=== PATIENT | male | born 1950 | race Caucasian/White ===

== ENCOUNTER 2024-05-13 17:21 | Emergency (ER) | payer MEDICARE, OTHER ==
[2024-05-13 17:26] VITALS: BP 143/84; O2SAT 94
[2024-05-13] MEDS: cephALEXin 250 MG CAPSULE PO STA (17:49)
--- NOTE | 2024-05-13 17:52 | ED Physician Documentation ---
History of Present Illness - Stated complaint Stated Complaint: LT HAND LAC - Chief complaint Chief Complaint: Laceration - History obtained from History obtained from: Patient - History of Present Illness Timing: Today Pain level max: 3 Pain level now: 1 - Additonal information Additional information: Patient is a 73-year-old male who was using his machine egg washer today when he accidentally sprayed himself in the left wrist/dorsum of the hand. Causing a laceration. Tetanus is up-to-date. Patient is right-handed. Nothing makes it better or worse. The machine egg washer was only running water through the nozzle. There was no soap or oil. Review of Systems Constitutional: denies: Fever, Chills PD PAST MEDICAL HISTORY - Past Medical History Past Medical History: No - Past Surgical History Past Surgical History: No - Present Medications Home Medications: Ambulatory Orders Medication Instructions Recorded Confirmed cephALEXin [Keflex] 500 mg PO Q6H #28 cap 05/13/24 - Allergies Allergies/Adverse Reactions: Allergies Allergy/AdvReac Type Severity Reaction Status Date / Time No Known Drug Allergies Allergy Verified 05/13/24 17:24 - Social History Does the pt smoke?: No Smoking Status: Never smoker Does the pt drink ETOH?: No Does the pt have substance abuse?: No - Immunizations Immunizations are current?: Yes PD ED PE NORMAL - Vitals Vital signs reviewed: Yes - General General: Alert and oriented X 3, No acute distress - HEENT HEENT: Moist mucous membranes - Derm Derm: Warm and dry - Extremities Extremities: Other (Left hand - 2 cm laceration to the radial aspect of the dorsum of the left hand. Neurovascular intact. Full range of motion of the hand and fingers without pain. There is a small amount of surrounding crepitus in the soft tissue. No palmar tenderness or swelling.) - Neuro Neuro: Alert and oriented X 3 - Psych Psych: Normal mood, Normal affect Results - Vitals Vitals: Vital Signs - 24 hr 05/13/24 17:24 Temperature 36.5 C Heart Rate 90 Respiratory 16 Rate Blood Pressure 143/84 H O2 Saturation 94 - Rads (name of study) Left hand x-ray Relevant Findings:: Final report received, See rad report Procedures - Laceration (location) Left hand Length in cm: 2 Wound type: Linear Neurovascular status: Sensory intact, Motor intact, Vascular intact Anesthesia: Lidocaine 1% with epi Wound preparation: Irrigated copiously NS Skin layer closure: Nylon, Interrupted Other: Patient tolerated well, No complications, Neurovascular intact, Dressing applied, Tetanus UTD PD Medical Decision Making - ED course Complexity details: reviewed results, re-evaluated patient, considered differential, d/w patient ED course: Patient is a 73-year-old male with a laceration to the left hand from a machine egg washer. Containing water only. There is a soft tissue injury. He has full range of motion without pain. No palmar tenderness or swelling. Laceration repaired. Will place on Keflex. Will have him monitor closely for any further signs of infection and follow-up immediately with his doctor in [place] this begins to show signs of infection. Tetanus up-to-date. Patient counseled regarding signs and symptoms for which I believe and urgent re-evaluation would be necessary. Patient with good understanding of and agreement to plan and is comfortable going home at this time This document was made in part using voice recognition software. While efforts are made to proofread this document, sound alike and grammatical errors may occur. Departure - Departure Disposition: 01 Home, Self Care Clinical Impression: Laceration, High pressure injury of left hand Condition: Good Instructions: ED Laceration Hand Follow-Up: your,doctor in 3-5 days for wound check [Other] Prescriptions: cephALEXin [Keflex] 500 mg PO Q6H #28 cap Comments: Your prescription was sent to [facility] in [place] please take all antibiotics until gone. Please return if you worsen. As we discussed there is soft tissue injury secondary to the high-pressure water injury. We need to monitor this closely for signs of infection, return for increasing redness, swelling or drainage. Forms: PCP List
--- NOTE | 2024-05-13 18:01 | XRAY Report ---
PROCEDURE: Hand 3+V LT INDICATIONS: knit goods washer vs hand TECHNIQUE: 3 views of the hand(s) acquired. COMPARISON: None. FINDINGS: Bones: No fractures or dislocations. No suspicious bony lesions. Age-appropriate degenerative willson es are seen. Soft tissues: Soft tissue injury with soft tissue gas can be seen along the radial aspect of the vann d and along the dorsal aspect of the hand. No radiopaque foreign bodies are seen. IMPRESSION: Significant soft tissue injury seen, with soft tissue gas. No underlying acute bony abnormality is seen. Reviewed by: Samy Flores MD on 05/13/2024 5:00 PM OLMAN Approved by: Samy Flores MD on 05/13/2024 5:00 PM [facility]NEHAL Station ID: [id number]
[2024-05-13] MEDS: LIDOCAINE 1%-EPI 1:100000 20 ML MDV SUBQ STA (18:09)
== END 2024-05-13 19:02 | disposition home or self-care (01) ==
LOC: ED 17:21
DX: S61.412A Laceration without foreign body of left hand, initial encounter (principal); S60.922A Unspecified superficial injury of left hand, initial encounter; T70.4XXA Effects of high-pressure fluids, initial encounter; W45.8XXA Other foreign body or object entering through skin, initial encounter; W29.8XXA Contact with other powered hand tools and household machinery, initial encounter; Y93.H9 Activity, other involving exterior property and land maintenance, building and construction
CPT/HCPCS: 12001; 73130; 99283; A9270